=== PATIENT | female | born 1955 ===

== ENCOUNTER 2024-11-24 08:00 | Inpatient (IN) | payer OTHER ==
[~2024-11-24] VITALS: Ht 162.6 cm; Wt 93.0 kg
[2024-11-24 07:52] LABS: URINE APPEARANCE Clear; URINE BILIRRUBIN Negative (NEGATIVE); URINE BLOOD Negative; URINE COLOR Dark Yellow; URINE GLUCOSE Negative (NEGATIVE); URINE KETONE Trace (NEGATIVE); URINE LEUKOCYTE Small; URINE NITRATE Negative; URINE PROTEIN Trace (NEGATIVE)
[2024-11-24 07:54] LABS: URINE CAST 2.35 uL (0.0-1.40); URINE EPITHELIAL CELLS 14.4 uL (0.0-38.8); URINE WBC 241.2 uL (0.0-23.2)
[~2024-11-24 08:00] MED LIST: SYNTHROID100 MCG PO
[2024-11-24 08:02] LABS: HEMATOCRIT 40.8 % (36.0-45.00); HEMOGLOBIN 13.7 g/dL (12.0-15.00); MEAN CELL VOLUME 88.4 fL (80.00-100.00); MEAN CORPUSCULAR HEMOGLOBIN 29.6 pg (27.00-32.0); MEAN CORPUSCULAR HGB CONC 33.5 g/dl (32.0-36.0); PLATELET COUNT 404 K/uL (150-450); RED BLOOD COUNT 4.62 M/uL (4.00-6.00); RED CELL DISTRIBUTION WIDTH 13.3 % (11.5-14.5)
[2024-11-24 08:08] LABS: URINE BACTERIA > 9821.5 uL (0.0-1933)
[2024-11-24 08:16] VITALS: BP 136/81
[2024-11-24] MEDS ORDERED: HUMULIN R100 UNIT/1 (08:16)
[2024-11-24 08:47] LABS: PARTIAL THROMBOPLASTIN TIME 26.3 SECONDS (22.0-34.0); PROTHROMBIN TIME 10.9 SECONDS (9.0-11.5)
[2024-11-24 08:58] LABS: ALBUMIN 3.4 gm/dL (3.4-5.0); BILIRUBIN TOTAL 0.47 mg/dL (0.3-1.2); CALCIUM 10.1 mg/dL (8.5-10.1); CHOL HDL RATIO 3.7 (0-5.0); CREATININE SERUM 0.58 mg/dL (0.55-1.02); GFR 103.08; GLOBULINA 4.1 G/DL (2.4-3.5); POTASSIUM 3.99 mEq/L (3.5-5.1); TOTAL PROTEIN 7.5 gm/dL (6.4-8.2)
[2024-11-24 10:07] LABS: RH POSITIVE
[2024-11-24 12:01] LABS: COVID-19 AG NEGATIVE (NEGATIVE)
[2024-11-30] MEDS ORDERED: VANCOMYCIN HCL 1,000 MG VIAL ONE (07:10)
[2024-11-30] MEDS ORDERED: INSULIN REGULAR, HUMAN 1,000 UNIT/10 ML UNITS ONE (07:22)
[2024-11-30] MEDS ORDERED: POVIDONE-IODINE 118 ML BOTT TOP ONE (08:00)
[2024-11-30] MEDS ORDERED: HEPARIN SODIUM,PORCINE/PF 100 UNIT/ML SYRINGE IV ONE (08:04)
[2024-11-30] MEDS ORDERED: SODIUM CHLORIDE 0.45 % 1,000 ML IV SCH (09:45)
[2024-11-30] MEDS ORDERED: MORPHINE SULFATE 4 MG/ML CARTRIDGE IV PRN (09:45)
[2024-11-30] MEDS ORDERED: ONDANSETRON HCL 2 MG/ML VIAL IV PRN (09:45)
[2024-11-30] MEDS ORDERED: OxyCODONE HCL 5 MG TABLET (ROXICODONE) PO PRN (09:45)
[2024-11-30] MEDS ORDERED: MORPHINE SULFATE 4 MG/ML CARTRIDGE IV ONE (10:00)
[2024-11-30] MEDS ORDERED: INSULIN LISPRO 1,000 UNIT/10 ML UNITS SUBCUTANEO PRN (10:45)
[2024-11-30] MEDS ORDERED: DEXTROSE 50 % IN WATER 0.5 G/ML DISP.SYRIN IV PRN (10:45)
[2024-11-30] MEDS ORDERED: ACETAMINOPHEN 500 MG GEL..CAP PO SCH (12:00)
[2024-11-30] MEDS ORDERED: MORPHINE SULFATE 4 MG/ML VIAL IV ONE (12:15)
[2024-11-30] MEDS ORDERED: INSULIN LISPRO 1,000 UNIT/10 ML UNITS SUBCUTANEO ONE (12:23)
[2024-11-30 12:27] LABS: HEMOGLOBIN 11.6 g/dL (12.0-15.00); MEAN CELL VOLUME 89.5 fL (80.00-100.00); MEAN CORPUSCULAR HEMOGLOBIN 29.8 pg (27.00-32.0); MEAN CORPUSCULAR HGB CONC 33.2 g/dl (32.0-36.0); PLATELET COUNT 349 K/uL (150-450); RED BLOOD COUNT 3.91 M/uL (4.00-6.00); RED CELL DISTRIBUTION WIDTH 13.4 % (11.5-14.5)
[2024-11-30 13:17] VITALS: BP 119/84; O2SAT 97
[2024-11-30] MEDS ORDERED: METOPROLOL TARTRATE 25 MG TABLET PO STA (13:18)
[2024-11-30] MEDS ORDERED: METOPROLOL SUCCINATE 25 MG TAB.SR.24H PO SCH (13:39)
[2024-11-30 15:30] VITALS: BP 165/88; O2SAT 96
[2024-11-30] MEDS ORDERED: SIMVASTATIN 40 MG TABLET PO SCH (17:00)
[2024-11-30] MEDS ORDERED: GABAPENTIN 300 MG CAPSULE PO SCH (17:00)
[2024-11-30] MEDS ORDERED: VANCOMYCIN HCL 1,000 MG in 0.9 % SODIUM CHLORIDE 250 ML IV SCH (21:00)
[2024-11-30] MEDS ORDERED: ALPRAzolam 1 MG TABLET PO PRN (22:00)
[2024-12-01 00:27] VITALS: BP 139/67; O2SAT 95
[2024-12-01] MEDS ORDERED: LEVOTHYROXINE SODIUM 100 MCG TABLET PO SCH (06:00)
[2024-12-01 06:25] LABS: HEMATOCRIT 31.4 % (36.0-45.00); HEMOGLOBIN 10.8 g/dL (12.0-15.00); MEAN CELL VOLUME 88.3 fL (80.00-100.00); MEAN CORPUSCULAR HEMOGLOBIN 30.3 pg (27.00-32.0); MEAN CORPUSCULAR HGB CONC 34.4 g/dl (32.0-36.0); PLATELET COUNT 339 K/uL (150-450); RED BLOOD COUNT 3.56 M/uL (4.00-6.00); RED CELL DISTRIBUTION WIDTH 13.1 % (11.5-14.5)
[2024-12-01] MEDS ORDERED: CIPRO500 MG PO (08:25)
[2024-12-01] MEDS ORDERED: PERCOCET 5-3251 EACH PO (08:25)
[2024-12-01] MEDS ORDERED: ELIQUIS2.5 MG PO (08:25)
[2024-12-01 08:53] VITALS: BP 155/92; O2SAT 94
[2024-12-01] MEDS ORDERED: METOPROLOL TARTRATE 25 MG TABLET PO SCH (09:00)
[2024-12-01] MEDS ORDERED: SENNOSIDES 1 TAB TABLET PO SCH (09:00)
[2024-12-01] MEDS ORDERED: APIXABAN 2.5 MG TABLET PO SCH (09:00)
[2024-12-01] MEDS ORDERED: VANCOMYCIN HCL 1,000 MG VIAL ONE ×2 (09:36→22:32)
[2024-12-01] MEDS ORDERED: VANCOMYCIN HCL 1,000 MG VIAL IV NR (10:00)
[2024-12-01] MEDS ORDERED: INSULIN NPH HUM/REG INSULIN HM 1,000 UNIT/10 ML UNITS SUBCUTANEO NR (11:30)
[2024-12-01 12:08] LABS: COVID-19 AG NEGATIVE (NEGATIVE)
[2024-12-01 17:55] VITALS: BP 158/82; O2SAT 95
[2024-12-01 17:59] VITALS: BP 158/82; O2SAT 95
[2024-12-01] MEDS ORDERED: VANCOMYCIN HCL 1,000 MG VIAL IV SCH (21:00)
[2024-12-02 01:09] VITALS: BP 159/79; O2SAT 94
[2024-12-02] MEDS ORDERED: VANCOMYCIN HCL 1,000 MG VIAL ONE (06:34)
[2024-12-02 08:45] VITALS: BP 134/79; O2SAT 99
[2024-12-02] MEDS ORDERED: IRON FUM,PS/FOLIC ACID/VITC/B3 1 CAP CAPSULE PO SCH (09:00)
[2024-12-02] MEDS ORDERED: INSULIN NPH HUM/REG INSULIN HM 1,000 UNIT/10 ML UNITS SUBCUTANEO SCH (09:00)
[2024-12-02] MEDS ORDERED: DEXTROSE 50 % IN WATER 0.5 G/ML VIAL IV PRN (14:30)
== END 2024-12-02 16:30 | disposition designated cancer center or children's hospital (05) | DRG 470 ==
LOC: O/R 11-30 06:05 → SURH 11-30 08:00 → SURG 11-30 12:03 → SURH 11-30 17:00 → SURG 12-02 16:30
PROVIDERS: Internal Medicine; ADMIT Orthopaedic Surgery; ATTEND Orthopaedic Surgery
PROC: 0MNP0ZZ Release Left Knee Bursa and Ligament, Open Approach (ICD-10-PCS; 2024-11-30)
PROC: 0SUD07Z Supplement Left Knee Joint with Autologous Tissue Substitute, Open Approach (ICD-10-PCS; 2024-11-30)
PROC: 0SRD0JZ Replacement of Left Knee Joint with Synthetic Substitute, Open Approach (ICD-10-PCS; principal; 2024-11-30 17:00)
PROC: 4A12X4Z Monitoring of Cardiac Electrical Activity, External Approach (ICD-10-PCS; 2024-12-01)
DX: M17.12 Unilateral primary osteoarthritis, left knee (principal); M22.12 Recurrent subluxation of patella, left knee; I10 Essential (primary) hypertension